=== PATIENT | female | born 1980 ===

== ENCOUNTER 2018-04-18 08:04 | Day surgery (SDC) | payer MEDICAID ==
[2018-04-13 08:54] VITALS: BMI 19.5
[~2018-04-18 08:04] MED LIST: Acetaminophen-Codeine 300/30 mg Tab PO PRN; Dextrose 5%/0.45% NS 1,000 ML IV SCH; Methylene Blue 10 mg/mL(10ml) IV ONE; ceFAZolin IV 1 gm in Dextrose 1 GM/50 ML BAG IVPB ONE
[2018-04-18] MEDS ORDERED: Lactated Ringer's 1,000 ML IV ONE (10:05)
[2018-04-18] MEDS ORDERED: Succinylcholine Chloride 20 mg/ml Syr (5 ml) IV ONE (10:12)
[2018-04-18] MEDS ORDERED: Propofol 10 mg/ml Inj (20 ML) ONE (10:12)
[2018-04-18] MEDS ORDERED: Lidocaine/Epinephrine 1% 1:100000 10 ML IJ ONE (10:14)
[2018-04-18] MEDS ORDERED: Sodium Chloride 0.9% 20 ML IV ONE (10:14)
[2018-04-18] MEDS ORDERED: Lactated Ringer's 1,000 ML IV SCH (11:15)
[2018-04-18 13:11] VITALS: BP 101/56; PULSE 79; RESP 20; TEMP 97.8; O2SAT 98
--- NOTE | 2018-04-18 22:55 | OP ---
PROCEDURE DATE: 04/18/2018 PREOPERATIVE DIAGNOSIS: Right branchial cleft cyst. POSTOPERATIVE DIAGNOSIS: Right branchial cleft cyst. PROCEDURE: Right branchial cleft cyst removal. SURGEON: Guanako Morel MD DESCRIPTION OF PROCEDURE: The patient was brought into the room, placed in a supine position, anesthesia was initiated through an LMA and IV. The head was turned, the right ear was prepped and draped in usual sterile manner. An elliptical incision was made around the tip of the cyst after the tip was infused with methylene blue and the incision site was infused with lidocaine with epinephrine. Dissection was done around the cyst and the cyst was removed. Bleeding was controlled using cautery on the posterior aspect of the elliptical incision and direct pressure on the anterior aspect. Bleeding was controlled. A 5-0 nylon in a running manner was used to close the incision. The patient was taken off anesthesia and taken to recovery room in stable manner. Guanako Morel MD
== END 2018-04-18 13:11 | disposition home or self-care (01) ==
LOC: C.SDS 08:04
PROVIDERS: ATTEND Otolaryngology
DX: Q18.0 Sinus, fistula and cyst of branchial cleft (principal); Z98.890 Other specified postprocedural states
CPT/HCPCS: 42810; 88304; J0690; J2405; J2704; J3010; J7120

== ENCOUNTER 2018-04-23 14:24 | Emergency (ER) | payer MEDICAID ==
[2018-04-23 14:26] VITALS: BMI 19.5
[2018-04-23 14:32] VITALS: BP 109/72; PULSE 81; RESP 16; TEMP 98.2; O2SAT 98
--- NOTE | 2018-04-23 14:49 | C.PDOC ---
History Of Present Illness 37-YEAR-OLD FEMALE, PRESENTS TO THE EMERGENCY DEPARTMENT WITH CO INCREASING PAIN , NEW ONSET R FACIAL SWELLING SINCE 04/19. SP R BRANCHIAL CLEFT CYST REMOVAL BY DR MOREL. PS "I FEEL LIKE THERE IS LIQUID IN THERE AGAIN", NEW SWELLING SIDE R FACE. NO DC, NO REDNESS, FEVER. COMPLIANT W UNK ABX EXAM NAD NONTOXIC HEENT HEALING R PREAURICULAR WOUND, SUTURES IN PLACE. +INDURATION R FACE @ MANDIBULAR ANGLE, NONTEND NONFLUCTUANT SKIN NO DC. NO ERYTHEMA. REMAINDER NEG Time Seen by Provider: 04/23/18 14:42 Chief Complaint (Nursing): Eye Problem History Per: Patient History/Exam Limitations: no limitations Past Medical History Reviewed: Historical Data, Nursing Documentation, Vital Signs Vital Signs: Last Vital Signs Temp 98.2 F 04/23/18 14:29 Pulse 81 04/23/18 14:29 Resp 16 04/23/18 14:29 BP 109/72 04/23/18 14:29 Pulse Ox 98 04/23/18 15:11 Family History: States: No Known Family Hx - Social History Hx Alcohol Use: No Hx Substance Use: No Review Of Systems Constitutional: Negative for: Fever, Chills Cardiovascular: Negative for: Chest Pain, Palpitations Respiratory: Negative for: Cough, Shortness of Breath Gastrointestinal: Negative for: Nausea, Vomiting Musculoskeletal: Negative for: Neck Pain, Back Pain Skin: Negative for: Rash Neurological: Negative for: Weakness, Numbness, Headache, Dizziness Physical Exam - Physical Exam Appears: Non-toxic, No Acute Distress Skin: Warm, Dry, Other (NO DC. NO ERYTHEMA.) Head: Atraumatic, Other (HEALING R PREAURICULAR WOUND, SUTURES IN PLACE. + INDURATION R FACE @ MANDIBULAR ANGLE, NONTEND NONFLUCTUANT) Eye(s): bilateral: Normal Inspection Nose: Normal Oral Mucosa: Moist Lips: Normal Appearing Neck: Normal ROM Chest: Symmetrical Cardiovascular: Rhythm Regular, No Murmur Respiratory: Normal Breath Sounds, No Accessory Muscle Use Extremity: Normal ROM, No Deformity, No Swelling Neurological/Psych: Oriented x3, Normal Speech ED Course And Treatment O2 Sat by Pulse Oximetry: 98 Progress - Re-Evaluation Re-evaluation Note: 04/23/18 14:48 D/W DR MOREL: PT DC ON AUGMENTIN. ADVISES TO PROBE IN BETWEEN SUTURES TO SEE IF FLUID EXPRESSES. FU OFFICE TOMORROW 04/23/18 15:10 PT ADVISED RECOMMENDATION BY DR MOREL, PS PREFERS TO HAVE DONE BY ENT. ADVISED FU OFFICE TOMORROW - Data Reviewed Data Reviewed: Old records Disposition Counseled Patient/Family Regarding: Diagnosis, Need For Followup - Disposition Referrals: Guanako Morel MD [Staff Provider] - Disposition: HOME/ ROUTINE Disposition Time: 14:57 Condition: GOOD Additional Instructions: CONTINUE ANTIBIOTICS, WOUND CARE PREVIOUSLY PRESCRIBED. FOLLOW UP DR MOREL Instructions: Surgical Wound (DC) Forms: [employer] (Ind[place]ian), General Discharge Instructions - Clinical Impression Clinical Impression: Postoperative wound seroma - Scribe Statement The provider has reviewed the documentation as recorded by the Scribe (Jasiel Shah) All medical record entries made by the Scribe were at my direction and personally dictated by me. I have reviewed the chart and agree that the record accurately reflects my personal performance of the history, physical exam, medical decision making, and the department course for this patient. I have also personally directed, reviewed, and agree with the discharge instructions and disposition.
== END 2018-04-23 15:16 | disposition home or self-care (01) ==
LOC: C.ER 14:24
DX: L76.34 Postprocedural seroma of skin and subcutaneous tissue following other procedure (principal); Y83.8 Other surgical procedures as the cause of abnormal reaction of the patient, or of later complication, without mention of misadventure at the time of the procedure; Y92.89 Other specified places as the place of occurrence of the external cause